=== PATIENT | female | born 1970 | race Caucasian/White ===

== ENCOUNTER 2019-10-08 11:37 | Emergency (ER) | payer OTHER ==
[~2019-10-08] VITALS: Ht 162.6 cm; Wt 68.0 kg
--- NOTE | 2019-10-08 12:20 | NUR ---
BILAT FLANK PAIN, DYSURIA X 2 DAYS. PATIENT A/OX4, BREATH SMELLS LIKE ALCOHOL. PATIENT APPEARS TO BE ANXIOUS. UNABLE TO GIVE URINE SAMPLE AT THIS TIME.
[2019-10-08] MEDS ORDERED: MORPHINE SULFATE INJ 4 MG/ML DISP.SYRIN ONE ×2 (12:42→13:54)
[2019-10-08] MEDS ORDERED: ONDANSETRON HCL/PF 4 MG/2 ML VIAL ONE (12:42)
[2019-10-08 12:57] LABS: BASOPHILS # (AUTO) 0.1 /CMM (0.0-0.2); BASOPHILS % (AUTO) 1.2 % (0.0-2.0); EOSINOPHILS % (AUTO) 0.1 % (0.0-6.0); HEMATOCRIT 47 % (33-45); HEMOGLOBIN 15.6 g/dL (11.5-14.8); LYMPHOCYTES # (AUTO) 3.2 /CMM (0.8-4.8); LYMPHOCYTES % (AUTO) 38.9 % (20.0-44.0); MEAN CORPUSCULAR HGB CONC 34 g/dl (31.0-36.0); MEAN CORPUSCULAR VOLUME 89 fL (82-100); MONOCYTES # (AUTO) 0.5 /CMM (0.1-1.30); MONOCYTES % (AUTO) 5.7 % (2.0-12.0); NEUTROPHILS # (AUTO) 4.5 /CMM (1.8-8.9); NEUTROPHILS % (AUTO) 54.1 % (43.0-81.0); PLATELET COUNT (AUTO) 411 /CMM (150-450); RED BLOOD CELL COUNT(AUTO) 5.24 MIL/uL (4.0-5.2); WHITE BLOOD COUNT (AUTO) 8.2 K/uL (4.3-11.0)
[2019-10-08] MEDS ORDERED: ONDANSETRON HCL/PF 4 MG/2 ML VIAL IVP ONE (13:00)
[2019-10-08] MEDS ORDERED: IV NS 0.9% 1,000 ML BAG IV ONE ×2 (13:00→15:00)
[2019-10-08] MEDS ORDERED: MORPHINE SULFATE INJ 2 MG/ML DISP.SYRIN IV ONE ×2 (13:00→14:00)
[2019-10-08 13:03] LABS: CALCIUM, SERUM 8.3 mg/dL (8.5-10.1); CREATININE 0.8 mg/dL (0.6-1.3); POTASSIUM 3.6 mmol/L (3.5-5.1)
[2019-10-08 13:08] LABS: BILIRUBIN,DIRECT 0.1 mg/dL (0.0-0.2); BILIRUBIN,TOTAL 0.2 mg/dL (0.2-1.0); TOTAL PROTEIN, SERUM 7.1 g/dL (6.4-8.2)
[2019-10-08] MEDS ORDERED: LORAZEPAM INJ 2 MG/ML VIAL ONE (13:08)
[2019-10-08] MEDS ORDERED: LORAZEPAM INJ 2 MG/ML VIAL IV ONE (13:30)
[2019-10-08 13:58] LABS: APPEARANCE,URINE Clear (CLEAR); BILIRUBIN,URINE Negative (NEGATIVE); BLOOD, URINE Trace-lysed Ery/uL (NEGATIVE); COLOR,URINE Yellow (YELLOW); KETONES,URINE Negative (NEGATIVE); LEUKOCYTE ESTERASE ,URINE Negative (NEGATIVE); NITRITE, URINE Negative (NEGATIVE); PROTEIN,URINE Negative (NEGATIVE); UGLUCOSE Negative (NEGATIVE); UROBILINOGEN,URINE 0.2 EU/dL (0.2)
[2019-10-08 14:06] LABS: BACTERIA,URINE Few /HPF (None Seen); RBC,URINE 0-2 /HPF (0-2); SQUAMOUS EPITHELIAL CELL,UR Many /HPF (None Seen); WBC,URINE NONE SEEN /HPF (0-3)
--- NOTE | 2019-10-08 16:03 | NUR ---
PATIENT AMBULATORY WITH STEADY GAIT, STILL C/O MILD PAIN, AYDEN SO AT BEDSIDE AND EXPLAINED DC INSTRUCTIONS. IV removed. Catheter intact and site benign. Pressure and 4x4 applied to site. No bleeding noted.Patient discharged to home in stable condition. Written and verbal after care instructions given. Patient verbalizes understanding of instruction.
[2019-10-08 16:05] VITALS: BP 128/94
== END 2019-10-08 16:05 | disposition home or self-care (01) ==
LOC: ER 11:39
DX: K59.00 Constipation, unspecified (principal); F10.239 Alcohol dependence with withdrawal, unspecified; Z88.2 Allergy status to sulfonamides; Y90.9 Presence of alcohol in blood, level not specified
CPT/HCPCS: 36415; 74176; 80048; 80076; 81001; 83690; 85025; 96374; 96375; 96376; 99284; J2060; J2270 ×2; J2405; J7030 ×2; 81000-TC

== ENCOUNTER 2019-10-12 09:58 | Emergency (ER) | payer OTHER ==
[~2019-10-12] VITALS: Ht 162.6 cm; Wt 68.0 kg
--- NOTE | 2019-10-12 10:05 | NUR ---
c/o anxiety attack "feels like my head is gonna explode" and also c/o lower back pain x 14 daysago for same reason (lower back pain). Patient a/ox4, breathing even and unlabored, no sob noted. Needs attended, kept comfortable. Ambulatory with steady gait.
[2019-10-12] MEDS ORDERED: PARO40TA PO (10:13)
[2019-10-12] MEDS ORDERED: GABA-534 PO (10:13)
[2019-10-12] MEDS ORDERED: MIRT30TA7 PO (10:13)
[2019-10-12 10:23] LABS: APPEARANCE,URINE Clear (CLEAR); BILIRUBIN,URINE Negative (NEGATIVE); BLOOD, URINE Moderate Ery/uL (NEGATIVE); COLOR,URINE Yellow (YELLOW); KETONES,URINE Negative (NEGATIVE); LEUKOCYTE ESTERASE ,URINE Negative (NEGATIVE); NITRITE, URINE Negative (NEGATIVE); PH,URINE 7.5 (5.0-8.0); PROTEIN,URINE Negative (NEGATIVE); UGLUCOSE Negative (NEGATIVE); UROBILINOGEN,URINE 0.2 EU/dL (0.2)
[2019-10-12 10:29] LABS: BASOPHILS % (AUTO) 0.6 % (0.0-2.0); HEMATOCRIT 42 % (33-45); HEMOGLOBIN 14.2 g/dL (11.5-14.8); LYMPHOCYTES # (AUTO) 1.8 /CMM (0.8-4.8); LYMPHOCYTES % (AUTO) 21.1 % (20.0-44.0); MEAN CORPUSCULAR HGB CONC 34 g/dl (31.0-36.0); MEAN CORPUSCULAR VOLUME 90 fL (82-100); MONOCYTES # (AUTO) 0.4 /CMM (0.1-1.30); MONOCYTES % (AUTO) 4.8 % (2.0-12.0); NEUTROPHILS # (AUTO) 6.3 /CMM (1.8-8.9); NEUTROPHILS % (AUTO) 72.5 % (43.0-81.0); PLATELET COUNT (AUTO) 270 /CMM (150-450); RED BLOOD CELL COUNT(AUTO) 4.67 MIL/uL (4.0-5.2); WHITE BLOOD COUNT (AUTO) 8.7 K/uL (4.3-11.0)
[2019-10-12] MEDS ORDERED: LORAZEPAM 1 MG TABLET ONE (10:30)
[2019-10-12] MEDS ORDERED: LORAZEPAM 1 MG TABLET PO ONE (10:30)
[2019-10-12 10:41] LABS: CALCIUM, SERUM 9.7 mg/dL (8.5-10.1); CARBON DIOXIDE 28 mmol/L (21-32); CHLORIDE 104 mmol/L (98-107); CREATININE 0.8 mg/dL (0.6-1.3); GLUCOSE 100 mg/dL (74-106); POTASSIUM 3.8 mmol/L (3.5-5.1); SODIUM SERUM 140 mmol/L (136-145); UREA NITROGEN, BLOOD 5 mg/dL (7-18)
[2019-10-12 10:46] LABS: WBC,URINE 0-2 /HPF (0-3)
[2019-10-12 10:47] LABS: ALANINE AMINOTRANSFERASE 130 U/L (12-78); ALBUMIN 3.7 g/dL (3.4-5.0); ALCOHOL, BLOOD < 3 mg/dL (0-0); ALKALINE PHOSPHATASE 94 U/L (46-116); ASPARTATE AMINOTRANSFERASE 81 U/L (15-37); BILIRUBIN,DIRECT 0.1 mg/dL (0.0-0.2); BILIRUBIN,TOTAL 0.3 mg/dL (0.2-1.0)
[2019-10-12 10:47] LABS: BACTERIA,URINE None seen /HPF (None Seen); SQUAMOUS EPITHELIAL CELL,UR 0-2 /HPF (None Seen)
[2019-10-12 10:51] LABS: ACETAMINOPHEN 0 ug/ml (10-30); SALICYLATE 1.3 mg/dL (2.8-20.0)
--- NOTE | 2019-10-12 11:04 | NUR ---
Ambulatory with steady gait. No distress noted, Patient discharged to home in stable condition. Written and verbal after care instructions given. Patient verbalizes understanding of instruction. Will take Uber home, per patient.
[2019-10-12 11:06] VITALS: BP 175/7
== END 2019-10-12 11:07 | disposition home or self-care (01) ==
LOC: ER 10:00
DX: F10.239 Alcohol dependence with withdrawal, unspecified (principal); F41.9 Anxiety disorder, unspecified; Z88.2 Allergy status to sulfonamides; Z79.899 Other long term (current) drug therapy; Y90.0 Blood alcohol level of less than 20 mg/100 ml
CPT/HCPCS: 36415; 80048; 80076; 80305; 80307; 80329; 81001; 85025; 99283; G0480; 81000-TC

== ENCOUNTER 2019-10-18 16:18 | Emergency (ER) | payer OTHER ==
[~2019-10-18] VITALS: Ht 162.6 cm; Wt 84.4 kg
[~2019-10-18 16:18] MED LIST: GABA-534 PO; MIRT30TA7 PO; PARO40TA PO
--- NOTE | 2019-10-18 16:27 | NUR ---
PT BIBA RA 97 FROM HOME C/O BILATERAL FLANK PAIN MUCH WORSE TODAY, PT IS AAOX4, NOT IN RESPIRATORY DISTRESS, HOOKED TO MONITOR, KEPT RESTED AND COMFORTABLE, WILL CONTINUE TO MONITOR.
--- NOTE | 2019-10-18 16:29 | NUR ---
SEEN AND EXAMINED BY .
[2019-10-18] MEDS ORDERED: IV NS 0.9% 1,000 ML BAG IV ONE (16:30)
--- NOTE | 2019-10-18 16:35 | NUR ---
PT IV LINE ESTABLISHED, BLOOD DRAWN AND SENT TO LAB.
[2019-10-18] MEDS ORDERED: KETOROLAC TROMETHAMINE INJ 30 MG/ML VIAL ONE (16:37)
--- NOTE | 2019-10-18 16:40 | NUR ---
URINAL GIVEN BUT UNABLE TO PROVIDE URINE SPECIMENTHIS TIME
[2019-10-18 16:45] LABS: BASOPHILS # (AUTO) 0.1 /CMM (0.0-0.2); BASOPHILS % (AUTO) 0.9 % (0.0-2.0); HEMATOCRIT 41 % (33-45); HEMOGLOBIN 13.6 g/dL (11.5-14.8); LYMPHOCYTES # (AUTO) 3.2 /CMM (0.8-4.8); LYMPHOCYTES % (AUTO) 38.9 % (20.0-44.0); MEAN CORPUSCULAR HGB CONC 33 g/dl (31.0-36.0); MEAN CORPUSCULAR VOLUME 91 fL (82-100); MONOCYTES # (AUTO) 0.9 /CMM (0.1-1.30); NEUTROPHILS % (AUTO) 48.2 % (43.0-81.0); PLATELET COUNT (AUTO) 408 /CMM (150-450); RED BLOOD CELL COUNT(AUTO) 4.53 MIL/uL (4.0-5.2); WHITE BLOOD COUNT (AUTO) 8.3 K/uL (4.3-11.0)
[2019-10-18] MEDS ORDERED: LORAZEPAM INJ 2 MG/ML VIAL ONE (16:50)
--- NOTE | 2019-10-18 16:50 | NUR ---
URINE SPECIMEN COLLECTED AND SENT TO LAB.
[2019-10-18 16:51] LABS: CARBON DIOXIDE 24 mmol/L (21-32); CHLORIDE 107 mmol/L (98-107); CREATININE 0.9 mg/dL (0.6-1.3); GLUCOSE 92 mg/dL (74-106); SODIUM SERUM 141 mmol/L (136-145); UREA NITROGEN, BLOOD 10 mg/dL (7-18)
[2019-10-18 16:57] LABS: ALANINE AMINOTRANSFERASE 59 U/L (12-78); ALBUMIN 3.7 g/dL (3.4-5.0); ALKALINE PHOSPHATASE 85 U/L (46-116); ASPARTATE AMINOTRANSFERASE 19 U/L (15-37); BILIRUBIN,DIRECT 0.1 mg/dL (0.0-0.2); BILIRUBIN,TOTAL 0.1 mg/dL (0.2-1.0); LIPASE 294 U/L (73-393); TOTAL PROTEIN, SERUM 6.7 g/dL (6.4-8.2)
--- NOTE | 2019-10-18 16:57 | NUR ---
PT IS WHEELED TO CT SCAN VIA [facility].
[2019-10-18] MEDS ORDERED: LORAZEPAM INJ 2 MG/ML VIAL IV ONE (17:00)
[2019-10-18] MEDS ORDERED: KETOROLAC TROMETHAMINE INJ 30 MG/ML VIAL IV ONE (17:00)
[2019-10-18 17:16] LABS: APPEARANCE,URINE Clear (CLEAR); BILIRUBIN,URINE Negative (NEGATIVE); BLOOD, URINE Negative Ery/uL (NEGATIVE); COLOR,URINE Yellow (YELLOW); KETONES,URINE Negative (NEGATIVE); LEUKOCYTE ESTERASE ,URINE Negative (NEGATIVE); NITRITE, URINE Negative (NEGATIVE); PROTEIN,URINE Negative (NEGATIVE); UGLUCOSE Negative (NEGATIVE); UROBILINOGEN,URINE 0.2 EU/dL (0.2)
[2019-10-18] MEDS ORDERED: LORAZEPAM 1 MG TABLET PO ONE (17:30)
[2019-10-18] MEDS ORDERED: MORPHINE SULFATE INJ 2 MG/ML DISP.SYRIN IV ONE (17:30)
[2019-10-18] MEDS ORDERED: MORPHINE SULFATE INJ 4 MG/ML DISP.SYRIN ONE (17:43)
--- NOTE | 2019-10-18 18:06 | NUR ---
IV removed. Catheter intact and site benign. Pressure and 4x4 applied to site. No bleeding noted. Patient discharged to home in stable condition. Written and verbal after care instructions given. Patient verbalizes understanding of instruction.
[2019-10-18 18:07] VITALS: BP 127/81
== END 2019-10-18 18:20 | disposition home or self-care (01) ==
LOC: ER 16:20
DX: R10.9 Unspecified abdominal pain (principal); F41.9 Anxiety disorder, unspecified; Z88.2 Allergy status to sulfonamides; Z79.899 Other long term (current) drug therapy
CPT/HCPCS: 36415; 71045; 74176; 80048; 80076; 81001; 83690; 84484; 85025; 93005; 96374; 96375; 99285; J1885; J2060; J2270; J7030; 81000-TC

== ENCOUNTER 2019-10-23 16:01 | Emergency (ER) | payer OTHER ==
[~2019-10-23] VITALS: Ht 167.6 cm; Wt 73.0 kg
--- NOTE | 2019-10-23 16:21 | NUR ---
ALEX RA 97 from Home "R flank/back pain. +ETOH. BS-101", TO ER BED 1, HOOKED TO MONITOR, CHANGED TO HOSP GOWN, WARM BLANKET PROVIDED, DR MULLER AT BEDSIDE.
[2019-10-23] MEDS ORDERED: CHLORDIAZEPOXIDE HCL 25 MG CAPSULE PO ONE ×2 (16:30→20:00)
[2019-10-23] MEDS ORDERED: KETOROLAC TROMETHAMINE INJ 60 MG/2 ML VIAL IM ONE ×2 (16:30→16:44)
[2019-10-23] MEDS ORDERED: CHLORDIAZEPOXIDE HCL 25 MG CAPSULE ONE ×2 (16:45→17:30)
--- NOTE | 2019-10-23 17:08 | NUR ---
PATIENT NOT ABLE TO PROVIDE URINE SAMPLE, REFUSED STRAIGHT CATHETER. DR MULLER AWARE
--- NOTE | 2019-10-23 17:28 | NUR ---
DR MULLER AT BEDSIDE, PATIENT AGREED TO TAKE LIBRIUM. RECEIVED VERBAL ORDER OF LIBRIUM 50MG PO. CARRIED OUT.
--- NOTE | 2019-10-23 18:27 | NUR ---
STILL NOT ABLE TO PROVIDE URINE SAMPLE, DR GEE AWARE
--- NOTE | 2019-10-23 19:33 | NUR ---
REPORT GIVEN TO LEIGH PERES FOR ETHAN Addendum: 10/23/19 at 1934 by LISA REPORT GIVEN TO DOMINIK PERES FOR ETHAN
[2019-10-23] MEDS ORDERED: HYDROCODONE/APAP 5/325MG 1 EACH TABLET ONE (19:45)
[2019-10-23] MEDS ORDERED: HYDROCODONE/APAP 5/325MG 1 EACH TABLET PO ONE (20:00)
[2019-10-23 21:43] LABS: APPEARANCE,URINE Clear (CLEAR); BILIRUBIN,URINE Negative (NEGATIVE); BLOOD, URINE Negative Ery/uL (NEGATIVE); COLOR,URINE Yellow (YELLOW); KETONES,URINE Negative (NEGATIVE); LEUKOCYTE ESTERASE ,URINE Negative (NEGATIVE); NITRITE, URINE Negative (NEGATIVE); PROTEIN,URINE Negative (NEGATIVE); UGLUCOSE Negative (NEGATIVE); UROBILINOGEN,URINE 0.2 EU/dL (0.2)
--- NOTE | 2019-10-23 22:06 | NUR ---
Patient discharged to home in stable condition. Written and verbal after care instructions given. Patient verbalizes understanding of instruction.IV removed. Catheter intact and site benign. Pressure and 4x4 applied to site. No bleeding noted. Pt ambulatory with a steady gait
[2019-10-23 22:07] VITALS: BP 121/84
== END 2019-10-23 22:07 | disposition home or self-care (01) ==
LOC: ER 16:04
DX: R10.31 Right lower quadrant pain (principal); Z88.2 Allergy status to sulfonamides
CPT/HCPCS: 81001; 96372; 99285; J1885; 81000-TC

== ENCOUNTER 2019-12-18 14:57 | Emergency (ER) | payer OTHER ==
[~2019-12-18] VITALS: Ht 167.6 cm; Wt 68.5 kg
--- NOTE | 2019-12-18 15:00 | NUR ---
, from home, been drinking alcohol x 5 days,last drink this morning, c/o nausea vomiting, to ER bed 13, hooked to monitor, provided w warm blanket, Dr Ruiz at bedside
[2019-12-18] MEDS ORDERED: CHLORDIAZEPOXIDE HCL 25 MG CAPSULE ONE (15:14)
--- NOTE | 2019-12-18 15:27 | NUR ---
patient ambulatory at bedside
[2019-12-18] MEDS ORDERED: CHLORDIAZEPOXIDE HCL 25 MG CAPSULE PO ONE (15:30)
--- NOTE | 2019-12-18 15:53 | NUR ---
Patient discharged to home in stable condition. Assisted to waiting room to set her UBER, Written and verbal after care instructions given. Patient verbalizes understanding of instruction.
[2019-12-18 15:54] VITALS: BP 121/82
== END 2019-12-18 15:54 | disposition home or self-care (01) ==
LOC: ER 14:58
DX: F10.239 Alcohol dependence with withdrawal, unspecified (principal); F41.9 Anxiety disorder, unspecified; F17.200 Nicotine dependence, unspecified, uncomplicated; Z88.2 Allergy status to sulfonamides; Z79.899 Other long term (current) drug therapy; Y90.9 Presence of alcohol in blood, level not specified

== ENCOUNTER 2020-01-08 05:50 | Emergency (ER) | payer OTHER ==
[~2020-01-08] VITALS: Ht 175.3 cm; Wt 68.0 kg
--- NOTE | 2020-01-08 06:00 | NUR ---
PT [id number] C/O ALCOHOL WITHDRAWAL.PER PT,BINGE DRINKING [id number]. LAST DRINK WAS 9 HOURS AGO FLY [employer]AME [employer]ER. PT ENDORSES LOWER BACK PAIN AND STATES " I FOUND MYSELF ON THE FLOOR BECAUSE I FELL". DENIES HT. PT AAOX4, RESPIRATIONS EVEN AND UNLABORED ON RA W/ NAD NOTED. PT CONNECTED TO THE MONITOR AND POX.
--- NOTE | 2020-01-08 06:06 | NUR ---
SAT 90% PLACED ON 2L NC NOW SAT 96%
--- NOTE | 2020-01-08 06:25 | NUR ---
RESIDENTIAL DOOR UNIT INSTALLER AT BEDSIDE FOR BLOOD DRAW
[2020-01-08 06:36] LABS: BASOPHILS # (AUTO) 0.1 /CMM (0.0-0.2); BASOPHILS % (AUTO) 0.9 % (0.0-2.0); HEMATOCRIT 40 % (33-45); HEMOGLOBIN 13.4 g/dL (11.5-14.8); LYMPHOCYTES # (AUTO) 2.8 /CMM (0.8-4.8); LYMPHOCYTES % (AUTO) 49.4 % (20.0-44.0); MEAN CORPUSCULAR HGB CONC 34 g/dl (31.0-36.0); MEAN CORPUSCULAR VOLUME 94 fL (82-100); MONOCYTES # (AUTO) 0.4 /CMM (0.1-1.30); MONOCYTES % (AUTO) 6.8 % (2.0-12.0); NEUTROPHILS # (AUTO) 2.3 /CMM (1.8-8.9); NEUTROPHILS % (AUTO) 41.9 % (43.0-81.0); PLATELET COUNT (AUTO) 311 /CMM (150-450); RED BLOOD CELL COUNT(AUTO) 4.25 MIL/uL (4.0-5.2); WHITE BLOOD COUNT (AUTO) 5.6 K/uL (4.3-11.0)
[2020-01-08 06:53] LABS: ALBUMIN 3.8 g/dL (3.4-5.0); BILIRUBIN,DIRECT 0.1 mg/dL (0.0-0.2); BILIRUBIN,TOTAL 0.2 mg/dL (0.2-1.0); CALCIUM, SERUM 8.5 mg/dL (8.5-10.1); CREATININE 0.7 mg/dL (0.6-1.3); POTASSIUM 4.1 mmol/L (3.5-5.1)
--- NOTE | 2020-01-08 07:02 | NUR ---
URINE COLLECTED AND SENT TO LAB
[2020-01-08] MEDS ORDERED: LORAZEPAM 0.5 MG TABLET ONE (07:07)
[2020-01-08] MEDS: LORAZEPAM 0.5 MG TABLET PO ONE (07:09)
[2020-01-08 07:12] LABS: APPEARANCE,URINE Clear (CLEAR); BILIRUBIN,URINE Negative (NEGATIVE); BLOOD, URINE Negative Ery/uL (NEGATIVE); COLOR,URINE Yellow (YELLOW); KETONES,URINE Negative (NEGATIVE); LEUKOCYTE ESTERASE ,URINE Negative (NEGATIVE); NITRITE, URINE Negative (NEGATIVE); PH,URINE 5.5 (5.0-8.0); PROTEIN,URINE Negative (NEGATIVE); UGLUCOSE Negative (NEGATIVE); UROBILINOGEN,URINE 0.2 EU/dL (0.2)
[2020-01-08] MEDS: PAROXETINE HCL 20 MG TABLET PO SCH (07:51)
[2020-01-08 07:52] VITALS: BP 12/61
--- NOTE | 2020-01-08 07:52 | NUR ---
Patient discharged to home in stable condition. Written and verbal after care instructions given. Patient verbalizes understanding of instruction.
== END 2020-01-08 07:52 | disposition home or self-care (01) ==
LOC: ER 05:54
DX: F10.239 Alcohol dependence with withdrawal, unspecified (principal); R10.9 Unspecified abdominal pain; F41.9 Anxiety disorder, unspecified; Y90.9 Presence of alcohol in blood, level not specified; Z88.2 Allergy status to sulfonamides; Z79.899 Other long term (current) drug therapy
CPT/HCPCS: 36415; 80048-TC; 80076-TC; 81000-TC; 83690-TC; 85025-TC

== ENCOUNTER 2021-07-22 05:56 | Emergency (ER) | payer OTHER ==
[~2021-07-22] VITALS: Ht 162.6 cm; Wt 68.0 kg
[~2021-07-22 05:56] MED LIST changes: +MIRT-91 PO; -MIRT30TA7 PO
--- NOTE | 2021-07-22 06:07 | NUR ---
PATIENT [id number] FROM THE STREETS C/O PALPITATIONS X FEW HOURS. PATIENT ADMITS TO ETOH. PATIENT ALERT AND ORIENTED X3. AMBULATORY WITH NON LABORED BREATHING. PATIENT PLACED ON A MONITOR IN A GOWN AND ON A POX.
--- NOTE | 2021-07-22 06:08 | NUR ---
EMT @ BEDSIDE FOR EKG
[2021-07-22] MEDS ORDERED: ONDANSETRON HCL/PF 4 MG/2 ML VIAL ONE (06:19)
[2021-07-22] MEDS ORDERED: LORAZEPAM INJ 2 MG/ML VIAL ONE (06:21)
[2021-07-22] MEDS ORDERED: IV NS 0.9% 1,000 ML BAG IV ONE (06:30)
[2021-07-22] MEDS ORDERED: LORAZEPAM INJ 2 MG/ML VIAL IV ONE (06:30)
[2021-07-22] MEDS ORDERED: ONDANSETRON HCL/PF 4 MG/2 ML VIAL IVP ONE (06:30)
--- NOTE | 2021-07-22 06:45 | NUR ---
20G IV LINE INITIATED IN R WRIST. BLOOD AND URINE COLLECTED AND SENT TO LAB.
[2021-07-22 07:19] LABS: BASOPHILS # (AUTO) 0.1 K/uL (0.0-0.2); BASOPHILS % (AUTO) 0.8 % (0.0-2.0); EOSINOPHILS % (AUTO) 0.6 % (0.0-6.0); HEMATOCRIT 40 % (33-45); HEMOGLOBIN 13.7 g/dL (11.5-14.8); LYMPHOCYTES # (AUTO) 2.3 K/uL (0.8-4.8); MEAN CORPUSCULAR HGB CONC 34 g/dl (31.0-36.0); MEAN CORPUSCULAR VOLUME 88 fL (82-100); MONOCYTES # (AUTO) 0.3 K/uL (0.1-1.30); MONOCYTES % (AUTO) 3.7 % (2.0-12.0); NEUTROPHILS # (AUTO) 4.9 K/uL (1.8-8.9); NEUTROPHILS % (AUTO) 64.9 % (43.0-81.0); PLATELET COUNT (AUTO) 382 K/uL (150-450); RED BLOOD CELL COUNT(AUTO) 4.58 MIL/uL (4.0-5.2); WHITE BLOOD COUNT (AUTO) 7.5 K/uL (4.3-11.0)
--- NOTE | 2021-07-22 07:38 | NUR ---
ASSESSED PT ON BED ASLEEP BUT EASILY AROUSABLE, AAOX4, NOT IN RESPIRATORY DISTRESS, V/S STABLE, KEPT RESTED AND COMFORTABLE. WILL CONTINUE TO MONITOR.
[2021-07-22 07:50] LABS: ALANINE AMINOTRANSFERASE 42 U/L (12-78); ALBUMIN 4.3 g/dL (3.4-5.0); ALKALINE PHOSPHATASE 99 U/L (46-116); ASPARTATE AMINOTRANSFERASE 40 U/L (15-37); BILIRUBIN,DIRECT 0.1 mg/dL (0.0-0.2); BILIRUBIN,TOTAL 0.3 mg/dL (0.2-1.0); TOTAL PROTEIN, SERUM 7.6 g/dL (6.4-8.2)
[2021-07-22 08:02] LABS: BILIRUBIN,URINE NEGATIVE (NEGATIVE); COLOR,URINE YELLOW (YELLOW); LEUKOCYTE ESTERASE ,URINE SMALL (NEGATIVE); NITRITE, URINE NEGATIVE (NEGATIVE); PH,URINE 6.5 (5.0-8.0); PROTEIN,URINE NEGATIVE (NEGATIVE); UGLUCOSE NEGATIVE (NEGATIVE); UROBILINOGEN,URINE 0.2 EU/dL (0.2)
--- NOTE | 2021-07-22 08:07 | NUR ---
URINE SENT TO LAB
[2021-07-22 08:11] LABS: BACTERIA,URINE None seen /HPF (None Seen); RBC,URINE 0-2 /HPF (0-2); SQUAMOUS EPITHELIAL CELL,UR Few /HPF (None Seen); WBC,URINE 0-2 /HPF (0-3)
[2021-07-22 08:51] LABS: THYROID STIMULATING HORMONE 0.847 uIU/mL (0.358-3.74)
--- NOTE | 2021-07-22 09:50 | NUR ---
IV removed. Catheter intact and site benign. Pressure and 4x4 applied to site. No bleeding noted.Patient discharged to home in stable condition. Written and verbal after care instructions given. Patient verbalizes understanding of instruction.
[2021-07-22 09:51] VITALS: BP 119/71
== END 2021-07-22 09:51 | disposition home or self-care (01) ==
LOC: ER 06:11
DX: F10.10 Alcohol abuse, uncomplicated (principal); R00.2 Palpitations; Z88.2 Allergy status to sulfonamides; Z59.00 Homelessness unspecified
CPT/HCPCS: 36415; 71045; 80076; 80307; 80320; 81001; 84443; 84484; 85025; 87086; 93005; 96361; 96374; 96375; 99285; J2060; J2405; J7030; G0480

== ENCOUNTER → 2021-07-29 | Emergency (ER) | payer OTHER ==
[~2021-07-29] VITALS: Ht 162.6 cm; Wt 68.0 kg
--- NOTE | 2021-07-29 18:32 | NUR ---
TO ER BED 4, [id number] FROM HOME C/O RIGHT HIP PAIN AND NECK PAIN 9/10 S/P FALLING AFTER STEPPING ON ASPARAGUS, ADMITS TO TAKING TEQUILA SHOTS, AAOX3, BREATHING EVEN AND NON LABORED
--- NOTE | 2021-07-29 19:04 | NUR ---
RESEARCH PROFESSIONAL AT BEDSIDE
--- NOTE | 2021-07-29 19:44 | NUR ---
Patient does not wish to proceed with medical care recommended by Dr. HEARD. Patient given information related to possible complications, up to and including , which could occur as a result of leaving the hospital at this time. Patient verbalizes understanding of risks involved due to leaving against medical advice. Patient has signed AMA form.
[2021-07-29 19:56] VITALS: BP 108/57
== END | disposition left against medical advice (07) ==
LOC: ER 18:32
DX: S89.81XA Other specified injuries of right lower leg, initial encounter (principal); F10.10 Alcohol abuse, uncomplicated; F17.200 Nicotine dependence, unspecified, uncomplicated; F41.9 Anxiety disorder, unspecified; Z88.2 Allergy status to sulfonamides; Z59.00 Homelessness unspecified; Z79.899 Other long term (current) drug therapy; W01.0XXA Fall on same level from slipping, tripping and stumbling without subsequent striking against object, initial encounter; Y93.89 Activity, other specified; Y92.090 Kitchen in other non-institutional residence as the place of occurrence of the external cause; Y99.8 Other external cause status; Y90.9 Presence of alcohol in blood, level not specified
CPT/HCPCS: 72050-TC; 73502; 73552

== ENCOUNTER 2021-07-30 16:23 | Emergency (ER) | payer OTHER ==
[~2021-07-30] VITALS: Ht 162.6 cm; Wt 68.0 kg
--- NOTE | 2021-07-30 17:01 | NUR ---
The patient is bibra [address]/o etoh. The patient is alert and oriented x2. Admits drinking alcohol. Denies pain. In room air and denies SOB. Respiration regular and unlabored. Denies SI/HI. Will continue to monitor the patient.
[2021-07-30] MEDS ORDERED: LORAZEPAM 1 MG TABLET PO ONE (18:30)
[2021-07-30] MEDS ORDERED: LORAZEPAM 1 MG TABLET ONE (18:57)
--- NOTE | 2021-07-30 19:29 | NUR ---
REPORT GIVEN TO NURSE SALAZAR FOR ETHAN
[2021-07-30 20:03] VITALS: BP 117/75
--- NOTE | 2021-07-30 20:03 | NUR ---
Patient discharged to home in stable condition. Written and verbal after care instructions given. Patient verbalizes understanding of instruction.
== END 2021-07-30 20:04 | disposition home or self-care (01) ==
LOC: ER 16:26
DX: F10.10 Alcohol abuse, uncomplicated (principal); F41.9 Anxiety disorder, unspecified; F17.200 Nicotine dependence, unspecified, uncomplicated; Z88.2 Allergy status to sulfonamides; Z59.00 Homelessness unspecified; Z79.899 Other long term (current) drug therapy; Y90.9 Presence of alcohol in blood, level not specified

== ENCOUNTER 2022-12-10 14:20 | Emergency (ER) | payer OTHER ==
[~2022-12-10] VITALS: Ht 162.6 cm; Wt 58.1 kg
--- NOTE | 2022-12-10 15:05 | NUR ---
PT IN BED 12, A/OX4, BREATHING IS EVEN AND UNLABORED. C/O ABD PAIN FEMALE WITH HISTORY OF PANCREATITIS. PAIN 9/10 PER PT STATEMENTS. ALLERGIC TO [facility] DRUGS. CONNECTED TO BEDSIDE MONITOR BED LOCKEDF IN LOWEST POSITION.
[2022-12-10 15:12] LABS: BASOPHILS % (AUTO) 0.8 % (0.0-2.0); HEMATOCRIT 42 % (33-45); HEMOGLOBIN 14.4 g/dL (11.5-14.8); LYMPHOCYTES # (AUTO) 1.5 K/uL (0.8-4.8); LYMPHOCYTES % (AUTO) 23.7 % (20.0-44.0); MEAN CORPUSCULAR HGB CONC 34 g/dl (31.0-36.0); MEAN CORPUSCULAR VOLUME 99 fL (82-100); MONOCYTES # (AUTO) 0.9 K/uL (0.1-1.30); MONOCYTES % (AUTO) 14.7 % (2.0-12.0); NEUTROPHILS # (AUTO) 3.7 K/uL (1.8-8.9); NEUTROPHILS % (AUTO) 60.8 % (43.0-81.0); PLATELET COUNT (AUTO) 159 K/uL (150-450); RED BLOOD CELL COUNT(AUTO) 4.27 MIL/uL (4.0-5.2); WHITE BLOOD COUNT (AUTO) 6.2 K/uL (4.3-11.0)
[2022-12-10 15:43] LABS: CALCIUM, SERUM 8.8 mg/dL (8.5-10.1); CREATININE 0.7 mg/dL (0.6-1.3)
[2022-12-10 15:44] LABS: POTASSIUM 2.1 mmol/L (3.5-5.1)
--- NOTE | 2022-12-10 15:50 | NUR ---
PT EXPRESSED THAT WISHED TO LEAVE.
[2022-12-10 15:51] LABS: ALBUMIN 3.2 g/dL (3.4-5.0); BILIRUBIN,DIRECT 0.4 mg/dL (0.0-0.2); BILIRUBIN,TOTAL 0.7 mg/dL (0.2-1.0); TOTAL PROTEIN, SERUM 6.5 g/dL (6.4-8.2)
--- NOTE | 2022-12-10 15:51 | NUR ---
PT SIGNED AMA PAPER WORK AND LEFT AMA DOCTOR AND NURSE BOTH EXPLAINED THE DANGER OF LEAVIGN AGAIST MEDICAL ADVICE AND URGED HER TO STAY. PT CHOSE TO LEAVE AMA
[2022-12-10 15:52] VITALS: BP 124/72
== END 2022-12-10 15:55 | disposition home or self-care (01) ==
LOC: ER 14:25
DX: R10.84 Generalized abdominal pain (principal); R23.4 Changes in skin texture; F41.9 Anxiety disorder, unspecified; F17.200 Nicotine dependence, unspecified, uncomplicated; Z88.2 Allergy status to sulfonamides
CPT/HCPCS: 36415; 80048-TC; 80076-TC; 83690-TC; 85025-TC; G0480